=== PATIENT | male | born 1990 | race Caucasian/White ===

== ENCOUNTER 2020-11-10 09:24 | Day surgery (SDC) | payer OTHER ==
[~2020-11-10 09:24] MED LIST: PERCOCET 5/325M1 TAB PO
[2020-11-10] MEDS ORDERED: PERCOCET 5/325M1 TAB PO (12:58)
[2020-11-10 14:30] VITALS: BP 124/81
== END 2020-11-10 14:20 | disposition home or self-care (01) ==
LOC: ORM 09:24
PROVIDERS: ATTEND Surgery
DX: K40.30 Unilateral inguinal hernia, with obstruction, without gangrene, not specified as recurrent (principal); F17.210 Nicotine dependence, cigarettes, uncomplicated
CPT/HCPCS: C9290; J0131; J1100; J2710